=== PATIENT | male | born 1960 | race African-American/Black ===

== ENCOUNTER 2022-04-17 08:22 | Emergency (ER) | payer BC | END 2022-04-17 08:52 | disposition home or self-care (01) | LOC: NAV ERS 08:22 | DX: S39.012A Strain of muscle, fascia and tendon of lower back, initial encounter (principal); I10 Essential (primary) hypertension; J44.9 Chronic obstructive pulmonary disease, unspecified; Z79.899 Other long term (current) drug therapy; X50.9XXA Other and unspecified overexertion or strenuous movements or postures, initial encounter | CPT/HCPCS: 99283 ==

== ENCOUNTER 2022-04-20 14:55 | Emergency (ER) | payer BC ==
[2022-04-20] MEDS ORDERED: Fleet Enema 133 ML BOT ONE (15:33)
== END 2022-04-20 16:07 | disposition home or self-care (01) ==
LOC: NAV ERS 14:55
DX: K59.00 Constipation, unspecified (principal); I10 Essential (primary) hypertension; J44.9 Chronic obstructive pulmonary disease, unspecified; Z79.899 Other long term (current) drug therapy
CPT/HCPCS: 99283

== ENCOUNTER 2022-04-24 10:09 | Emergency (ER) | payer BC ==
[2022-04-24] MEDS ORDERED: Cyclobenzaprine 10 MG TAB ONE (10:39)
[2022-04-24] MEDS ORDERED: Ketorolac Tromethamine 60 MG/2 ML VIAL ONE (10:39)
== END 2022-04-24 11:20 | disposition home or self-care (01) ==
LOC: NAV ERS 10:09
DX: M54.50 Low back pain, unspecified (principal); I10 Essential (primary) hypertension; J44.9 Chronic obstructive pulmonary disease, unspecified
CPT/HCPCS: 96372; 99283; J1885